=== PATIENT | female | born 1955 | race Caucasian/White ===

== ENCOUNTER 2018-03-27 05:28 | Inpatient (IN) ==
[2018-03-27] MEDS ORDERED: MAGNESIUM SULF RIDER 2 GM in PREMIX 1 EACH IV PRN ×2 (06:00→13:18)
[2018-03-27] MEDS ORDERED: POTASSIUM CHLORIDE RIDER 10 MEQ in PREMIX 1 EACH IV PRN (06:00)
[2018-03-27] MEDS ORDERED: diphenhydrAMINE CAP 25 MG CAPSULE PO ONE (06:00)
[2018-03-27] MEDS ORDERED: DIAZEPAM 5 MG TABLET PO ONE (06:00)
[2018-03-27] MEDS ORDERED: ASPIRIN 325 MG TABLET PO ONE (06:00)
[2018-03-27] MEDS ORDERED: DIAZEPAM 5 MG TABLET ONE (06:57)
[2018-03-27] MEDS ORDERED: ASPIRIN 325 MG TABLET ONE (06:57)
[2018-03-27] MEDS ORDERED: diphenhydrAMINE CAP 25 MG CAPSULE ONE (06:58)
[2018-03-27] MEDS: SODIUM CHLORIDE 0.9% 1,000 ML IV SCH ×3 (07:02→22:50)
[2018-03-27] MEDS ORDERED: VERAPAMIL 5 MG/2 ML VIAL ONE (07:07)
[2018-03-27] MEDS ORDERED: NITROGLYCERIN DRIP 50 MG/250 ML BOTTLE IV ONE (07:07)
[2018-03-27] MEDS ORDERED: LIDOCAINE 1% 20 ML VIAL ONE (07:07)
[2018-03-27] MEDS ORDERED: MIDAZOLAM 2 MG/2 ML VIAL ONE (07:21)
[2018-03-27] MEDS ORDERED: fentaNYL 100 MCG/2 ML VIAL ONE (07:21)
[2018-03-27] MEDS ORDERED: ONDANSETRON 4 MG/2 ML VIAL ONE (07:26)
[2018-03-27] MEDS ORDERED: PROMETHAZINE 25 MG/1 ML VIAL ONE (07:43)
[2018-03-27] MEDS ORDERED: ENOXAPARIN 30 MG/0.3 ML SYRINGE ONE (07:48)
[2018-03-27] MEDS ORDERED: MAGNESIUM SULF RIDER 4 GM in PREMIX 1 EACH IV PRN (13:18)
[2018-03-27] MEDS ORDERED: DEXTROSE 50% 25 GM/50 ML VIAL IV PRN (13:21)
[2018-03-27] MEDS ORDERED: GLUCAGON 1 MG VIAL IM PRN (13:21)
[2018-03-27] MEDS ORDERED: ACETAMINOPHEN 325 MG TABLET PO PRN (13:22)
[2018-03-27] MEDS ORDERED: ONDANSETRON 4 MG/2 ML VIAL IV PRN (13:22)
[2018-03-27] MEDS ORDERED: LACTULOSE 20 GM/30 ML UDCUP PO PRN (13:22)
[2018-03-27] MEDS: INSULIN REGULAR 100 UNIT/ML SUBCUT SCH ×3 (17:10→22:14)
[2018-03-27] MEDS: FUROSEMIDE 20 MG TABLET PO SCH (17:10)
[2018-03-27] MEDS: FLECAINIDE 50 MG TABLET PO SCH (22:11)
[2018-03-27] MEDS: ROSUVASTATIN 20 MG TABLET PO SCH (22:12)
[2018-03-27] MEDS: CARVEDILOL 6.25 MG TABLET PO SCH (22:12)
[2018-03-27] MEDS: glipiZIDE 10 MG TABLET PO SCH (22:12)
[2018-03-28] MEDS: SODIUM CHLORIDE 0.9% 1,000 ML IV SCH ×3 (05:24→21:15)
[2018-03-28] MEDS: INSULIN REGULAR 100 UNIT/ML SUBCUT SCH ×4 (07:49→21:13)
[2018-03-28] MEDS: FLECAINIDE 50 MG TABLET PO SCH ×2 (08:49→21:14)
[2018-03-28] MEDS: LOSARTAN 25 MG TABLET PO SCH (08:49)
[2018-03-28] MEDS: CARVEDILOL 6.25 MG TABLET PO SCH ×2 (08:50→21:14)
[2018-03-28] MEDS: glipiZIDE 10 MG TABLET PO SCH ×2 (08:50→21:14)
[2018-03-28] MEDS: FUROSEMIDE 20 MG TABLET PO SCH ×2 (08:50→16:50)
[2018-03-28] MEDS: INSULIN GLARGINE 100 UNIT/ML SUBCUT SCH (08:50)
[2018-03-28] MEDS: sitaGLIPtin 100 MG TABLET PO SCH (08:50)
[2018-03-28] MEDS ORDERED: NITROGLYCERIN SL 0.4 MG TABLET SL PRN (13:33)
[2018-03-28] MEDS: DIGOXIN 0.25 MG TABLET PO SCH (14:10)
[2018-03-28] MEDS: ROSUVASTATIN 20 MG TABLET PO SCH (21:14)
[2018-03-28] MEDS: ZALEPLON 5 MG CAPSULE PO PRN (21:20)
[2018-03-29] MEDS ORDERED: CLORAZEPATE 3.75 MG TABLET PO PRN (03:13)
[2018-03-29] MEDS: SODIUM CHLORIDE 0.9% 1,000 ML IV SCH ×3 (05:31→21:41)
[2018-03-29] MEDS: FLECAINIDE 50 MG TABLET PO SCH ×2 (09:00→21:42)
[2018-03-29] MEDS: LOSARTAN 25 MG TABLET PO SCH (09:00)
[2018-03-29] MEDS: INSULIN GLARGINE 100 UNIT/ML SUBCUT SCH (09:00)
[2018-03-29] MEDS: INSULIN REGULAR 100 UNIT/ML SUBCUT SCH ×4 (09:00→21:43)
[2018-03-29] MEDS: FUROSEMIDE 20 MG TABLET PO SCH ×2 (09:00→16:06)
[2018-03-29] MEDS: sitaGLIPtin 100 MG TABLET PO SCH (09:00)
[2018-03-29] MEDS: CARVEDILOL 6.25 MG TABLET PO SCH ×2 (09:00→21:43)
[2018-03-29] MEDS: glipiZIDE 10 MG TABLET PO SCH ×2 (09:00→21:43)
[2018-03-29] MEDS: ASPIRIN 325 MG TABLET PO SCH (09:05)
[2018-03-29] MEDS: DIGOXIN 0.25 MG TABLET PO SCH (12:35)
[2018-03-29] MEDS: ROSUVASTATIN 20 MG TABLET PO SCH (21:43)
[2018-03-29] MEDS: ZALEPLON 5 MG CAPSULE PO PRN ×2 (21:44→22:45)
[2018-03-30 04:16] LABS: Basophils # 0.1 10*3/uL (0.0-0.2); Basophils % 0.6 % (0.0-0.8); Eosinophils # 0.4 10*3/uL (0.0-0.87); Eosinophils % 4.3 % (0.00-10.9); Hematocrit 34.7 VOL% (35.7-47.0); Hemoglobin 11.6 GM/DL (12.0-16.0); Immature Granulocytes % 0.4 %; Immature Granulocytes Absolute 0.03 #; Lymphocytes # 2.2 10*3/uL (1.4-4.0); Lymphocytes % 26.7 % (21.3-54.2); Mean Corpuscular HGB Conc 33.4 GM/DL (32-36); Mean Corpuscular Hemoglobin 27 PG (27-34); Mean Corpuscular Volume 81.3 FL (87-102); Mean Platelet Volume 9.8 FL (9.6-12.0); Monocytes # 0.7 10*3/uL (0.11-0.8); Monocytes % 8.4 % (1.7-12.7); Neutrophils # 4.9 10*3/uL (1.4-7.4); Neutrophils % 59.6 % (38.7-73.9); Platelet Count 285 T/CUMM (130-400); Red Blood Count 4.27 MC/CUMM (3.8-5.5); Red Cell Distribution Width 13.9 % (9.3-17.3); White Blood Count 8.2 T/CUMM (4-12)
[2018-03-30 04:49] LABS: Calcium 8.7 MG/DL (8.5-10.1); Osmolality,Calculated 284.7 MOS/KG (273-304); Potassium 3.7 MMOL/L (3.5-5.1)
[2018-03-30] MEDS: SODIUM CHLORIDE 0.9% 1,000 ML IV SCH ×3 (06:16→23:31)
[2018-03-30] MEDS: INSULIN REGULAR 100 UNIT/ML SUBCUT SCH ×4 (09:00→21:55)
[2018-03-30] MEDS: ASPIRIN 325 MG TABLET PO SCH (09:01)
[2018-03-30] MEDS: FUROSEMIDE 20 MG TABLET PO SCH ×2 (09:01→16:01)
[2018-03-30] MEDS: INSULIN GLARGINE 100 UNIT/ML SUBCUT SCH (09:01)
[2018-03-30] MEDS: sitaGLIPtin 100 MG TABLET PO SCH (09:01)
[2018-03-30] MEDS: glipiZIDE 10 MG TABLET PO SCH ×2 (09:01→21:55)
[2018-03-30] MEDS: FLECAINIDE 50 MG TABLET PO SCH ×2 (09:01→21:55)
[2018-03-30] MEDS: LOSARTAN 25 MG TABLET PO SCH (09:02)
[2018-03-30] MEDS: CARVEDILOL 6.25 MG TABLET PO SCH ×2 (09:02→21:55)
[2018-03-30] MEDS: DIGOXIN 0.25 MG TABLET PO SCH (12:21)
[2018-03-30] MEDS: ROSUVASTATIN 20 MG TABLET PO SCH (21:55)
[2018-03-30] MEDS: ZALEPLON 5 MG CAPSULE PO PRN ×2 (21:55→22:50)
[2018-03-31] MEDS: SODIUM CHLORIDE 0.9% 1,000 ML IV SCH ×5 (06:05→23:06)
[2018-03-31] MEDS ORDERED: FAMOTIDINE 20 MG/2 ML VIAL IV ONE (08:07)
[2018-03-31] MEDS ORDERED: DIAZEPAM 5 MG TABLET PO ONE (08:07)
[2018-03-31] MEDS: CARVEDILOL 6.25 MG TABLET PO SCH ×2 (09:00→20:35)
[2018-03-31] MEDS: FLECAINIDE 50 MG TABLET PO SCH ×2 (09:00→20:35)
[2018-03-31] MEDS: ASPIRIN 325 MG TABLET PO SCH (09:00)
[2018-03-31] MEDS: LOSARTAN 25 MG TABLET PO SCH (09:00)
[2018-03-31] MEDS: FUROSEMIDE 20 MG TABLET PO SCH ×2 (09:00→16:54)
[2018-03-31] MEDS: sitaGLIPtin 100 MG TABLET PO SCH (09:00)
[2018-03-31] MEDS: glipiZIDE 10 MG TABLET PO SCH ×2 (09:00→20:35)
[2018-03-31] MEDS: INSULIN GLARGINE 100 UNIT/ML SUBCUT SCH (09:01)
[2018-03-31] MEDS: INSULIN REGULAR 100 UNIT/ML SUBCUT SCH ×4 (09:01→20:25)
[2018-03-31] MEDS: CHLORHEXIDINE 0.12% ORAL RINSE 60 ML BOTTLE SWISH/SPIT SCH ×2 (09:10→21:28)
[2018-03-31] MEDS: DIGOXIN 0.25 MG TABLET PO SCH (12:34)
[2018-03-31] MEDS: CHLORHEXIDINE 4% SOLN 118 ML BOTTLE TOP SCH ×2 (14:57→20:38)
[2018-03-31] MEDS: ZALEPLON 5 MG CAPSULE PO PRN ×2 (20:35→21:35)
[2018-03-31] MEDS: ROSUVASTATIN 20 MG TABLET PO SCH (20:35)
[2018-04-01 04:15] LABS: ABG HCO3 27.1 MMOL/L (20-26); ABG Oxygen Saturation 97.5 % (95-100); ABG PCO2 40.4 MM HG (35-48); ABG PH 7.439 (7.35-7.45); ABG PO2 91.2 MM HG (80-95); ABG TCO2 24.4 MMOL/L (23-27); Allen Test Positive; Pt O2 Delivery Device Room Air
[2018-04-01] MEDS ORDERED: VANCOMYCIN 1,000 MG VIAL ONE (05:26)
[2018-04-01] MEDS ORDERED: PAPAVERINE 60 MG/2 ML VIAL ONE (05:26)
[2018-04-01] MEDS ORDERED: TISSUE ADHESIVE 1 EACH APPLICATOR TOP ONE ×2 (05:26→09:22)
[2018-04-01] MEDS: SODIUM CHLORIDE 0.9% 1,000 ML IV SCH (05:36)
[2018-04-01] MEDS: CARVEDILOL 6.25 MG TABLET PO SCH ×2 (05:39→11:14)
[2018-04-01] MEDS ORDERED: CEFUROXIME INJ 1,500 MG in SYRINGE 1 EACH IV ONE (05:45)
[2018-04-01 05:47] LABS: Basophils # 0.1 10*3/uL (0.0-0.2); Basophils % 0.7 % (0.0-0.8); Eosinophils # 0.3 10*3/uL (0.0-0.87); Eosinophils % 3.6 % (0.00-10.9); Hematocrit 37.5 VOL% (35.7-47.0); Hemoglobin 12.5 GM/DL (12.0-16.0); Immature Granulocytes % 0.3 %; Immature Granulocytes Absolute 0.02 #; Lymphocytes # 2.2 10*3/uL (1.4-4.0); Lymphocytes % 29.1 % (21.3-54.2); Mean Corpuscular HGB Conc 33.3 GM/DL (32-36); Mean Corpuscular Hemoglobin 27 PG (27-34); Mean Corpuscular Volume 81.9 FL (87-102); Mean Platelet Volume 10.1 FL (9.6-12.0); Monocytes # 0.6 10*3/uL (0.11-0.8); Monocytes % 7.5 % (1.7-12.7); Neutrophils # 4.4 10*3/uL (1.4-7.4); Neutrophils % 58.8 % (38.7-73.9); Platelet Count 313 T/CUMM (130-400); Red Blood Count 4.58 MC/CUMM (3.8-5.5); White Blood Count 7.5 T/CUMM (4-12)
[2018-04-01] MEDS ORDERED: FAMOTIDINE 20 MG/2 ML VIAL IV ONE (06:00)
[2018-04-01] MEDS ORDERED: DIAZEPAM 5 MG TABLET PO ONE (06:00)
[2018-04-01 06:05] LABS: Calcium 9.1 MG/DL (8.5-10.1); Osmolality,Calculated 291.3 MOS/KG (273-304); Potassium 3.7 MMOL/L (3.5-5.1)
[2018-04-01] MEDS ORDERED: SCOPOLAMINE 1.5 MG PATCH TRANSDERM ONE (06:30)
[2018-04-01 07:55] LABS: ABG Base Excess 0.4 MMOL/L (-2.5-2.5); ABG HCO3 24.9 MMOL/L (20-26); ABG PH 7.437 (7.35-7.45); ABG TCO2 21.8 MMOL/L (23-27); Glucose Heart Surgery 258 MG/DL (74-106); Hematocrit Heart Surgery 33.2 PERCENT (37-47); Hemoglobin Heart Surgery 10.7 G/DL (12.0-16.0); Ionized Calcium Arterial 1.23 MMOL/L (1.21-1.46); PH Patient Temp Arterial 7.437; Patient Temperature 37 CELCIUS; Sodium Heart/CVR 138 MMOL/L (135-145)
[2018-04-01] MEDS ORDERED: SODIUM BICARBONATE 50 MEQ/50 ML SYRINGE IV ONE ×2 (08:03→10:36)
[2018-04-01] MEDS ORDERED: PHENYLEPHRINE DRIP 40 MG/250 ML PREMIX IV ONE (08:03)
[2018-04-01] MEDS ORDERED: EPINEPHrine 1 MG/10 ML SYRINGE ONE (08:04)
[2018-04-01] MEDS ORDERED: POTASSIUM CHLORIDE RIDER 100 ML IV ONE (08:04)
[2018-04-01] MEDS ORDERED: ALBUMIN 5% 12.5 GM/250 ML VIAL IV ONE (08:04)
[2018-04-01] MEDS ORDERED: CALCIUM CHLORIDE 1,000 MG/10 ML SYRINGE IV ONE (08:04)
[2018-04-01] MEDS ORDERED: ATROPINE 1 MG/10 ML SYRINGE ONE (08:05)
[2018-04-01] MEDS: FUROSEMIDE 20 MG TABLET PO SCH (08:11)
[2018-04-01] MEDS: INSULIN REGULAR 100 UNIT/ML SUBCUT SCH ×2 (08:11→12:45)
[2018-04-01] MEDS ORDERED: HEPARIN/NACL 0.9% 2 UNITS/ML 500 ML IV ONE (08:56)
[2018-04-01] MEDS ORDERED: CALCIUM CHLORIDE 1,000 MG/10 ML VIAL IV ONE (08:56)
[2018-04-01] MEDS ORDERED: PHENYLEPHRINE DRIP 20 MG/250 ML PREMIX IV ONE (08:57)
[2018-04-01] MEDS ORDERED: MINERAL OIL/PETROLATUM OPH OINT 3.5 GM TUBE ONE (08:57)
[2018-04-01] MEDS ORDERED: VECURONIUM 10 MG VIAL IV ONE (08:57)
[2018-04-01] MEDS ORDERED: NITROGLYCERIN DRIP 50 MG/250 ML BOTTLE IV ONE (08:57)
[2018-04-01] MEDS ORDERED: ETOMIDATE 40 MG/20 ML VIAL IV ONE (08:57)
[2018-04-01 09:06] LABS: Hemoglobin Heart Surgery 6.9 G/DL (12.0-16.0); PCO2 Patient Temp Venous 29.2 MM HG; PH Patient Temp Venous 7.554; PO2 Patient Temp Venous 35.9 MM HG; Potassium Heart/CVR 4.7 MMOL/L (3.5-5.1); VBG Base Excess 2.7 MEQ/L (0-4); VBG HCO3 25.6 MEQ/L (24-28); VBG Oxygen Saturation 76.1 %; VBG PCO2 31.9 MMHG (41-51); VBG PH 7.523; VBG PO2 41.3 MMHG (17-40)
[2018-04-01 09:35] LABS: Hematocrit Heart Surgery 23.5 PERCENT (37-47); Hemoglobin Heart Surgery 7.5 G/DL (12.0-16.0); PCO2 Patient Temp Venous 34.1 MM HG; PH Patient Temp Venous 7.472; PO2 Patient Temp Venous 38.9 MM HG; Potassium Heart/CVR 4.9 MMOL/L (3.5-5.1); VBG Base Excess 1.5 MEQ/L (0-4); VBG HCO3 25.6 MEQ/L (24-28); VBG Oxygen Saturation 81.9 %; VBG PCO2 37.6 MMHG (41-51); VBG PH 7.442; VBG PO2 44.6 MMHG (17-40)
[2018-04-01 10:17] LABS: Hematocrit Heart Surgery 31.7 PERCENT (37-47); Hemoglobin Heart Surgery 10.3 G/DL (12.0-16.0); PCO2 Patient Temp Venous 42.6 MM HG; PH Patient Temp Venous 7.391; PO2 Patient Temp Venous 44.8 MM HG; Potassium Heart/CVR 4.9 MMOL/L (3.5-5.1); VBG Base Excess 0.8 MEQ/L (0-4); VBG HCO3 24.8 MEQ/L (24-28); VBG Oxygen Saturation 78.5 %; VBG PCO2 42.6 MMHG (41-51); VBG PH 7.391; VBG PO2 44.8 MMHG (17-40)
[2018-04-01] MEDS ORDERED: THROMBIN TOPICAL (RECOMBINANT) 5,000 UNIT VIAL TOP ONE (10:20)
[2018-04-01 10:25] LABS: ABG Base Excess 0.2 MMOL/L (-2.5-2.5); ABG HCO3 24.6 MMOL/L (20-26); ABG PCO2 32.5 MM HG (35-48); ABG PH 7.467 (7.35-7.45); ABG TCO2 21.7 MMOL/L (23-27); Glucose Heart Surgery 387 MG/DL (74-106); Hematocrit Heart Surgery 26.1 PERCENT (37-47); Hemoglobin Heart Surgery 8.4 G/DL (12.0-16.0); Ionized Calcium Arterial 1.34 MMOL/L (1.21-1.46); PCO2 Patient Temp Arterial 32.5 MMHG; PH Patient Temp Arterial 7.467; Patient Temperature 37 CELCIUS; Potassium Heart/CVR 4.5 MMOL/L (3.5-5.1); Sodium Heart/CVR 133 MMOL/L (135-145)
[2018-04-01] MEDS ORDERED: ALBUMIN 25% 25 GM/100 ML VIAL IV ONE (10:36)
[2018-04-01] MEDS ORDERED: DEXTROSE 5% KCL 20 MEQ 20 MEQ/1,000 ML BAG IV ONE (10:36)
[2018-04-01] MEDS ORDERED: MANNITOL 12.5 GM/50 ML VIAL IV ONE (10:37)
[2018-04-01] MEDS ORDERED: FUROSEMIDE 20 MG/2 ML VIAL ONE (10:37)
[2018-04-01] MEDS ORDERED: PHENYLEPHRINE 1 MG/10 ML SYRINGE IV ONE (10:37)
[2018-04-01] MEDS ORDERED: PROTAMINE SULFATE 250 MG/25 ML VIAL IV ONE (10:37)
[2018-04-01] MEDS ORDERED: MAGNESIUM SULFATE 10 GM/20 ML VIAL IV ONE (10:37)
[2018-04-01] MEDS ORDERED: methylPREDNISolone SOD SUC 1,000 MG/8 ML VIAL ONE (10:37)
[2018-04-01] MEDS ORDERED: HEPARIN 10,000 UNIT/10 ML VIAL ONE (10:37)
[2018-04-01] MEDS: ASPIRIN 325 MG TABLET PO SCH (11:14)
[2018-04-01] MEDS: LOSARTAN 25 MG TABLET PO SCH (11:14)
[2018-04-01] MEDS: FLECAINIDE 50 MG TABLET PO SCH (11:15)
[2018-04-01] MEDS: CHLORHEXIDINE 0.12% ORAL RINSE 60 ML BOTTLE SWISH/SPIT SCH ×2 (11:15→21:42)
[2018-04-01] MEDS: sitaGLIPtin 100 MG TABLET PO SCH (11:15)
[2018-04-01] MEDS: INSULIN GLARGINE 100 UNIT/ML SUBCUT SCH (11:15)
[2018-04-01] MEDS: glipiZIDE 10 MG TABLET PO SCH (11:15)
[2018-04-01] MEDS: CHLORHEXIDINE 4% SOLN 118 ML BOTTLE TOP SCH (11:15)
[2018-04-01] MEDS: SODIUM CHLORIDE 0.9% 250 ML IV PRN ×5 (11:20→19:32)
[2018-04-01] MEDS ORDERED: ACETAMINOPHEN 650 MG SUPP RECTAL PRN (11:27)
[2018-04-01] MEDS ORDERED: MAGNESIUM SULF RIDER 2 GM in PREMIX 1 EACH IV PRN (11:27)
[2018-04-01] MEDS ORDERED: MIDAZOLAM 2 MG/2 ML VIAL IV PRN (11:27)
[2018-04-01] MEDS ORDERED: MAGNESIUM SULF RIDER 4 GM in PREMIX 1 EACH IV PRN (11:27)
[2018-04-01] MEDS ORDERED: POTASSIUM CHLORIDE RIDER 10 MEQ in PREMIX 1 EACH IV PRN (11:27)
[2018-04-01] MEDS ORDERED: INSULIN REGULAR 100 UNIT/ML IV PRN (11:27)
[2018-04-01] MEDS ORDERED: CHLORHEXIDINE 4% SOLN 118 ML BOTTLE TOP PRN (11:27)
[2018-04-01] MEDS ORDERED: ONDANSETRON 4 MG/2 ML VIAL IV PRN (11:27)
[2018-04-01] MEDS ORDERED: MORPHINE 10 MG/1 ML VIAL IV PRN (11:27)
[2018-04-01] MEDS ORDERED: CALCIUM CHLORIDE 1,000 MG/10 ML SYRINGE IV PRN (11:27)
[2018-04-01] MEDS ORDERED: DEXTROSE 50% 25 GM/50 ML VIAL IV PRN ×2 (11:27)
[2018-04-01] MEDS ORDERED: SODIUM CHLORIDE 0.45% 1,000 ML IV SCH (11:30)
[2018-04-01 11:52] LABS: ABG Base Excess -2.3 MMOL/L (-2.5-2.5); ABG HCO3 22.5 MMOL/L (20-26); ABG Oxygen Saturation 99.8 % (95-100); ABG PCO2 36.8 MM HG (35-48); ABG TCO2 20.6 MMOL/L (23-27); Glucose Heart Surgery 292 MG/DL (74-106); Hematocrit Heart Surgery 27.9 PERCENT (37-47); Potassium Heart/CVR 3.6 MMOL/L (3.5-5.1)
[2018-04-01 11:53] LABS: Basophils % 0.3 % (0.0-0.8); Eosinophils # 0.1 10*3/uL (0.0-0.87); Eosinophils % 0.7 % (0.00-10.9); Hematocrit 25.8 VOL% (35.7-47.0); Hemoglobin 8.6 GM/DL (12.0-16.0); Immature Granulocytes % 0.7 %; Lymphocytes # 0.9 10*3/uL (1.4-4.0); Lymphocytes % 6.8 % (21.3-54.2); Mean Corpuscular HGB Conc 33.3 GM/DL (32-36); Mean Corpuscular Hemoglobin 28 PG (27-34); Mean Corpuscular Volume 83.8 FL (87-102); Mean Platelet Volume 10.3 FL (9.6-12.0); Monocytes # 0.7 10*3/uL (0.11-0.8); Monocytes % 5.2 % (1.7-12.7); Neutrophils # 11.9 10*3/uL (1.4-7.4); Neutrophils % 86.3 % (38.7-73.9); Platelet Count 223 T/CUMM (130-400); Red Blood Count 3.08 MC/CUMM (3.8-5.5); Red Cell Distribution Width 13.8 % (9.3-17.3); White Blood Count 13.8 T/CUMM (4-12)
[2018-04-01 12:02] LABS: INR 1.1; PT Patient Result 11.2 SECS; Partial Thromboplastin Time 25.3 SECS (0-40)
[2018-04-01] MEDS: POTASSIUM CHLORIDE RIDER 20 MEQ in PREMIX 1 EACH IV PRN (12:02)
[2018-04-01] MEDS ORDERED: SEVOFLURANE 1 UNIT/15 MINUTE INH ONE (12:02)
[2018-04-01] MEDS ORDERED: SODIUM CHLORIDE 0.9% 250 ML IV ONE (12:03)
[2018-04-01] MEDS ORDERED: MIDAZOLAM 10 MG/2 ML VIAL ONE ×2 (12:03)
[2018-04-01] MEDS ORDERED: SODIUM CHLORIDE 0.9% 1,000 ML IV ONE (12:03)
[2018-04-01] MEDS ORDERED: AMINOCAPROIC ACID 5,000 MG/20 ML VIAL IV ONE (12:03)
[2018-04-01] MEDS ORDERED: LACTATED RINGERS 1,000 ML IV ONE (12:03)
[2018-04-01] MEDS ORDERED: SODIUM CHLORIDE 0.9% 100 ML IV ONE (12:03)
[2018-04-01] MEDS: SODIUM CHLORIDE 0.45% 1,000 ML IV SCH (12:04)
[2018-04-01] MEDS: INSULIN REGULAR DRIP 100 ML IV SCH (12:08)
[2018-04-01 12:20] LABS: Blood Urea Nitrogen 24 MG/DL (7-18); Calcium 8.7 MG/DL (8.5-10.1); Glucose 294 MG/DL (74-106); Osmolality,Calculated 293.4 MOS/KG (273-304); Potassium 3.6 MMOL/L (3.5-5.1); Sodium 140 MMOL/L (136-145)
[2018-04-01 12:23] LABS: Lactic Acid 5.2 MMOL/L (0.4-2.0)
[2018-04-01] MEDS: MORPHINE 4 MG/1 ML VIAL IV PRN ×2 (12:46→18:10)
[2018-04-01] MEDS: ALBUMIN 5% 12.5 GM in PREMIX 1 EACH IV PRN ×3 (13:01→14:54)
[2018-04-01 17:23] LABS: ABG Base Excess -1.1 MMOL/L (-2.5-2.5); ABG HCO3 23.5 MMOL/L (20-26); ABG Oxygen Saturation 99.2 % (95-100); ABG PCO2 41.9 MM HG (35-48); ABG PH 7.368 (7.35-7.45); ABG TCO2 22.6 MMOL/L (23-27); Glucose Heart Surgery 169 MG/DL (74-106); Hematocrit Heart Surgery 24.1 PERCENT (37-47); Hemoglobin Heart Surgery 7.7 G/DL (12.0-16.0); Potassium Heart/CVR 3.8 MMOL/L (3.5-5.1)
[2018-04-01] MEDS ORDERED: ASPIRIN 325 MG TABLET PO ONE (19:55)
[2018-04-01] MEDS: CEFUROXIME INJ 1,500 MG in SYRINGE 1 EACH IV SCH (20:29)
[2018-04-02] MEDS: KETOROLAC 15 MG/1 ML VIAL IV PRN ×4 (00:25→21:03)
[2018-04-02] MEDS: SODIUM CHLORIDE 0.45% 1,000 ML IV SCH (00:53)
[2018-04-02 03:47] LABS: Basophils % 0.1 % (0.0-0.8); Hematocrit 22.2 VOL% (35.7-47.0); Hemoglobin 7.2 GM/DL (12.0-16.0); Immature Granulocytes % 0.6 %; Immature Granulocytes Absolute 0.07 #; Lymphocytes # 0.7 10*3/uL (1.4-4.0); Lymphocytes % 6.1 % (21.3-54.2); Mean Corpuscular HGB Conc 32.4 GM/DL (32-36); Mean Corpuscular Hemoglobin 28 PG (27-34); Mean Corpuscular Volume 84.7 FL (87-102); Monocytes # 0.6 10*3/uL (0.11-0.8); Monocytes % 4.7 % (1.7-12.7); Neutrophils # 10.8 10*3/uL (1.4-7.4); Neutrophils % 88.5 % (38.7-73.9); Platelet Count 168 T/CUMM (130-400); Red Blood Count 2.62 MC/CUMM (3.8-5.5); Red Cell Distribution Width 14.1 % (9.3-17.3); White Blood Count 12.2 T/CUMM (4-12)
[2018-04-02 04:13] LABS: Calcium 7.5 MG/DL (8.5-10.1); Osmolality,Calculated 287.1 MOS/KG (273-304); Potassium 3.9 MMOL/L (3.5-5.1)
[2018-04-02] MEDS: INSULIN REGULAR DRIP 100 ML IV SCH (04:45)
[2018-04-02] MEDS: POTASSIUM CHLORIDE RIDER 20 MEQ in PREMIX 1 EACH IV PRN (05:49)
[2018-04-02] MEDS ORDERED: FUROSEMIDE 40 MG/4 ML VIAL IV PRN (07:00)
[2018-04-02] MEDS: CEFUROXIME INJ 1,500 MG in SYRINGE 1 EACH IV SCH ×2 (07:30→21:04)
[2018-04-02] MEDS: INSULIN REGULAR 100 UNIT/ML SUBCUT SCH ×5 (08:48→23:54)
[2018-04-02] MEDS: PANTOPRAZOLE 40 MG VIAL IV SCH (08:53)
[2018-04-02] MEDS: CHLORHEXIDINE 0.12% ORAL RINSE 60 ML BOTTLE SWISH/SPIT SCH ×2 (09:57→21:03)
[2018-04-02] MEDS: FUROSEMIDE 40 MG TABLET PO SCH (09:58)
[2018-04-02] MEDS: ASPIRIN EC 325 MG TABLET PO SCH (09:58)
[2018-04-02] MEDS ORDERED: INSULIN GLARGINE 100 UNIT/ML SUBCUT SCH (21:00)
[2018-04-02] MEDS: ATORVASTATIN 40 MG TABLET PO SCH (21:03)
[2018-04-03 04:55] LABS: Basophils % 0.2 % (0.0-0.8); Eosinophils % 0.1 % (0.00-10.9); Hematocrit 29.7 VOL% (35.7-47.0); Immature Granulocytes % 0.7 %; Immature Granulocytes Absolute 0.09 #; Lymphocytes # 1.8 10*3/uL (1.4-4.0); Lymphocytes % 13.6 % (21.3-54.2); Mean Corpuscular HGB Conc 33.3 GM/DL (32-36); Mean Corpuscular Hemoglobin 29 PG (27-34); Mean Corpuscular Volume 85.6 FL (87-102); Mean Platelet Volume 10.6 FL (9.6-12.0); Monocytes # 1.3 10*3/uL (0.11-0.8); Monocytes % 9.9 % (1.7-12.7); Neutrophils % 75.5 % (38.7-73.9); Platelet Count 193 T/CUMM (130-400); Red Cell Distribution Width 14.5 % (9.3-17.3); White Blood Count 13.3 T/CUMM (4-12)
[2018-04-03 05:08] LABS: Calcium 8.1 MG/DL (8.5-10.1); Osmolality,Calculated 294.3 MOS/KG (273-304); Potassium 4.2 MMOL/L (3.5-5.1)
[2018-04-03 05:09] LABS: Red Blood Count 3.47 MC/CUMM (3.8-5.5)
[2018-04-03 05:10] LABS: Hemoglobin 9.9 GM/DL (12.0-16.0)
[2018-04-03] MEDS: INSULIN REGULAR 100 UNIT/ML SUBCUT SCH ×5 (05:55→21:26)
[2018-04-03] MEDS: FUROSEMIDE 40 MG TABLET PO SCH (08:32)
[2018-04-03] MEDS: ASPIRIN EC 325 MG TABLET PO SCH (08:32)
[2018-04-03] MEDS: PANTOPRAZOLE 40 MG VIAL IV SCH (08:33)
[2018-04-03] MEDS: CHLORHEXIDINE 0.12% ORAL RINSE 60 ML BOTTLE SWISH/SPIT SCH ×2 (08:36→21:27)
[2018-04-03] MEDS: KETOROLAC 15 MG/1 ML VIAL IV PRN (11:23)
[2018-04-03] MEDS ORDERED: INSULIN GLARGINE 100 UNIT/ML SUBCUT SCH (21:00)
[2018-04-03] MEDS: ATORVASTATIN 40 MG TABLET PO SCH (21:25)
[2018-04-04] MEDS: INSULIN REGULAR 100 UNIT/ML SUBCUT SCH ×6 (01:00→22:09)
[2018-04-04 03:33] LABS: Basophils % 0.2 % (0.0-0.8); Eosinophils # 0.1 10*3/uL (0.0-0.87); Eosinophils % 1.2 % (0.00-10.9); Hematocrit 28.8 VOL% (35.7-47.0); Hemoglobin 9.5 GM/DL (12.0-16.0); Immature Granulocytes % 0.6 %; Immature Granulocytes Absolute 0.06 #; Lymphocytes # 1.3 10*3/uL (1.4-4.0); Lymphocytes % 12.6 % (21.3-54.2); Mean Corpuscular Hemoglobin 28 PG (27-34); Mean Corpuscular Volume 85.2 FL (87-102); Mean Platelet Volume 10.6 FL (9.6-12.0); Monocytes # 1.1 10*3/uL (0.11-0.8); Monocytes % 10.6 % (1.7-12.7); Neutrophils # 7.9 10*3/uL (1.4-7.4); Neutrophils % 74.8 % (38.7-73.9); Platelet Count 195 T/CUMM (130-400); Red Blood Count 3.38 MC/CUMM (3.8-5.5); Red Cell Distribution Width 14.1 % (9.3-17.3); White Blood Count 10.5 T/CUMM (4-12)
[2018-04-04 03:49] LABS: Calcium 8.4 MG/DL (8.5-10.1); Osmolality,Calculated 289.5 MOS/KG (273-304); Potassium 4.1 MMOL/L (3.5-5.1)
[2018-04-04] MEDS: KETOROLAC 15 MG/1 ML VIAL IV PRN (06:21)
[2018-04-04] MEDS: FUROSEMIDE 40 MG TABLET PO SCH (08:21)
[2018-04-04] MEDS: CHLORHEXIDINE 0.12% ORAL RINSE 60 ML BOTTLE SWISH/SPIT SCH ×2 (08:21→22:10)
[2018-04-04] MEDS: ASPIRIN EC 325 MG TABLET PO SCH (08:21)
[2018-04-04] MEDS: PANTOPRAZOLE 40 MG VIAL IV SCH (08:21)
[2018-04-04] MEDS ORDERED: METOPROLOL TARTRATE 25 MG TABLET ONE (22:08)
[2018-04-04] MEDS: INSULIN GLARGINE 100 UNIT/ML SUBCUT SCH (22:09)
[2018-04-04] MEDS: ATORVASTATIN 40 MG TABLET PO SCH (22:10)
[2018-04-04] MEDS: METOPROLOL TARTRATE 25 MG TABLET PO SCH (22:10)
[2018-04-05] MEDS: INSULIN REGULAR 100 UNIT/ML SUBCUT SCH ×6 (01:30→21:21)
[2018-04-05 05:44] LABS: Basophils % 0.3 % (0.0-0.8); Eosinophils # 0.3 10*3/uL (0.0-0.87); Eosinophils % 3.7 % (0.00-10.9); Hematocrit 26.8 VOL% (35.7-47.0); Hemoglobin 8.7 GM/DL (12.0-16.0); Immature Granulocytes % 0.6 %; Immature Granulocytes Absolute 0.05 #; Lymphocytes # 1.6 10*3/uL (1.4-4.0); Lymphocytes % 20.5 % (21.3-54.2); Mean Corpuscular HGB Conc 32.5 GM/DL (32-36); Mean Corpuscular Hemoglobin 28 PG (27-34); Mean Corpuscular Volume 85.4 FL (87-102); Mean Platelet Volume 10.3 FL (9.6-12.0); Monocytes # 0.7 10*3/uL (0.11-0.8); Monocytes % 9.4 % (1.7-12.7); Neutrophils # 5.1 10*3/uL (1.4-7.4); Neutrophils % 65.5 % (38.7-73.9); Platelet Count 206 T/CUMM (130-400); Red Blood Count 3.14 MC/CUMM (3.8-5.5); White Blood Count 7.8 T/CUMM (4-12)
[2018-04-05 05:57] LABS: Calcium 8.2 MG/DL (8.5-10.1); Osmolality,Calculated 286.4 MOS/KG (273-304); Potassium 3.8 MMOL/L (3.5-5.1)
[2018-04-05] MEDS ORDERED: FUROSEMIDE 40 MG/4 ML VIAL IV ONE (08:37)
[2018-04-05] MEDS: ASPIRIN EC 325 MG TABLET PO SCH (09:35)
[2018-04-05] MEDS: METOPROLOL TARTRATE 25 MG TABLET PO SCH ×3 (09:35→21:21)
[2018-04-05] MEDS: FUROSEMIDE 40 MG TABLET PO SCH (10:15)
[2018-04-05] MEDS: CHLORHEXIDINE 0.12% ORAL RINSE 60 ML BOTTLE SWISH/SPIT SCH ×2 (10:15→21:24)
[2018-04-05] MEDS: PANTOPRAZOLE 40 MG VIAL IV SCH (10:38)
[2018-04-05] MEDS: INSULIN GLARGINE 100 UNIT/ML SUBCUT SCH (21:21)
[2018-04-05] MEDS: ATORVASTATIN 40 MG TABLET PO SCH (21:21)
[2018-04-06] MEDS: INSULIN REGULAR 100 UNIT/ML SUBCUT SCH ×3 (01:03→08:12)
[2018-04-06] MEDS ORDERED: glipiZIDE 10 MG TABLET PO SCH (07:30)
[2018-04-06 07:59] VITALS: BP 126/68
[2018-04-06] MEDS: ASPIRIN EC 325 MG TABLET PO SCH (08:53)
[2018-04-06] MEDS: FUROSEMIDE 40 MG TABLET PO SCH (08:53)
[2018-04-06] MEDS: METOPROLOL TARTRATE 25 MG TABLET PO SCH (08:53)
[2018-04-06] MEDS: CHLORHEXIDINE 0.12% ORAL RINSE 60 ML BOTTLE SWISH/SPIT SCH (08:54)
[2018-04-06] MEDS: PANTOPRAZOLE 40 MG VIAL IV SCH (08:54)
== END 2018-04-06 11:06 | disposition home health service (06) | DRG 234 ==
LOC: N.CL 05:28 → N.TELEN 14:06 → N.CVR 04-01 06:55 → N.ICU 04-02 09:28 → N.TELES 04-02 14:53
PROVIDERS: ADMIT Internal Medicine Cardiovascular Disease; ATTEND Internal Medicine Cardiovascular Disease
PROC: CLCCHCL (ICD-10-PCS; 2018-03-27 07:45)